=== PATIENT | female | born 1950 | race Caucasian/White ===

== ENCOUNTER 2018-01-24 15:10 | Emergency (ER) | payer MEDICARE, OTHER ==
[2018-01-24 16:48] LABS: URINE BLOOD (Dip) POC 3+ (NEGATIVE); URINE GLUCOSE (Dip) POC Negative (NEGATIVE); URINE KETONES (Dip) POC Trace (NEGATIVE); URINE LEUKOCYTE EST (Dip) POC 2+ (NEGATIVE); URINE NITRITE (Dip) POC Negative (NEGATIVE); URINE TOTAL PROTEIN POC 2+ (NEGATIVE)
[2018-01-24] MEDS: CEFTRIAXONE 1 GM INJ IM (16:59)
[2018-01-24] MEDS: LIDOCAINE 1% (MDV) 10 ML INJ INFIL (16:59)
[2018-01-24] MEDS: LIDOCAINE 1% (MDV) 20 ML INJ SC (17:00)
[2018-01-24] MEDS: ACETAMINOPHEN 500 MG TAB PO (17:00)
== END 2018-01-24 17:43 | disposition home or self-care (01) ==
LOC: FTE 15:10
DX: N30.90 Cystitis, unspecified without hematuria (principal); I10 Essential (primary) hypertension
CPT/HCPCS: 81003; 87086; 96372; 99284-25